=== PATIENT | male | born 1965 | race Caucasian/White ===

== ENCOUNTER 2017-01-25 13:19 | Inpatient (IN) | payer BC ==
[~2017-01-25] VITALS: Ht 172.7 cm; Wt 89.2 kg
[2017-01-25] MEDS ORDERED: SODIUM CHLORIDE 0.9% 1,000ML IVBOLUS ONE (14:00)
[2017-01-25] MEDS ORDERED: LORazepam 2 MG/ML, 1ML IVPush ONE (14:00)
[2017-01-25] MEDS ORDERED: SODIUM CHLORIDE FLUSH 10ML SYR IVF ONE (14:00)
[2017-01-25] MEDS ORDERED: MAALOX/HYOSCYAMINE/LIDOCAINE 45 ML BOTTLE PO ONE (14:00)
[2017-01-25] MEDS ORDERED: ASPIRIN 81 MG TABLET CHEW PO ONE (14:00)
[2017-01-25] MEDS ORDERED: ASPIRIN 81 MG TABLET CHEW ONE (14:31)
[2017-01-25] MEDS ORDERED: LORazepam 2 MG/ML, 1ML ONE (14:32)
[2017-01-25 14:39] LABS: ASPARTATE AMINO TRANSFERASE 30 U/L (15-37); BLOOD UREA NITROGEN 16 mg/dL (7-18)
[2017-01-25] MEDS ORDERED: RANI-276 PO (14:43)
[2017-01-25 14:47] LABS: IS PT STATUS REG ER OR PRE ER? YES
[2017-01-25] MEDS ORDERED: POTASSIUM CHLORIDE 20 MEQ PACKET PO ONE (15:00)
[2017-01-25] MEDS ORDERED: POTASSIUM CHLORIDE 20 MEQ TAB.ER.PRT PO ONE (16:30)
[2017-01-25] MEDS ORDERED: morphine SULFATE 10 MG/ML, 1ML IVPush PRN (16:30)
[2017-01-25] MEDS ORDERED: HYDROcodone/APAP 5/325 TABLET PO PRN (16:30)
[2017-01-25] MEDS ORDERED: ONDANSETRON 2MG/ML, 2ML IVPush PRN (16:30)
[2017-01-25] MEDS ORDERED: LORazepam 2 MG/ML, 1ML IVPush PRN (16:30)
[2017-01-25 16:57] LABS: IS PT STATUS REG ER OR PRE ER? YES
[2017-01-25 18:26] VITALS: BP 129/85
[2017-01-25] MEDS: SODIUM CHLORIDE 0.9% 1,000 ML IV SCH (20:38)
[2017-01-25] MEDS: FAMOTIDINE 20 MG TABLET PO SCH (20:39)
[2017-01-25] MEDS: ENOXAPARIN 40 MG/0.4 ML SQ SCH (20:39)
[2017-01-25 20:43] VITALS: BP 124/78
[2017-01-25 20:49] LABS: IS PT STATUS REG ER OR PRE ER? NO
[2017-01-26 01:32] VITALS: BP 117/69
[2017-01-26 05:47] LABS: BLOOD UREA NITROGEN 11 mg/dL (7-18)
[2017-01-26] MEDS: SODIUM CHLORIDE 0.9% 1,000 ML IV SCH (06:11)
[2017-01-26 06:32] VITALS: BP 117/71
[2017-01-26] MEDS: FAMOTIDINE 20 MG TABLET PO SCH (08:35)
[2017-01-26] MEDS ORDERED: REGADENOSON 0.4 MG/5 ML SYRINGE ONE (08:40)
[2017-01-26] MEDS ORDERED: PNEUMOCOCCAL 23 VACCINE IM-VACC ONE (13:00)
[2017-01-26] MEDS ORDERED: ALPR1TAB2 PO (14:52)
[2017-01-26] MEDS: ENOXAPARIN 40 MG/0.4 ML SQ SCH (16:55)
[2017-01-26 17:03] VITALS: BP 138/83
== END 2017-01-26 19:47 | disposition home or self-care (01) | DRG 313 ==
LOC: ED 14:52 → EDIP 16:16 → 5SO 18:20
PROVIDERS: ADMIT Internal Medicine; ATTEND Internal Medicine
DX: R07.89 Other chest pain (principal); F41.9 Anxiety disorder, unspecified; K21.9 Gastro-esophageal reflux disease without esophagitis; E87.6 Hypokalemia; Z87.891 Personal history of nicotine dependence; Z82.49 Family history of ischemic heart disease and other diseases of the circulatory system
CPT/HCPCS: 36415; 71010; 78452; 80048; 80053; 83690; 83735; 84439; 84443; 84484; 85025; 90732; 93005; 93017; 93306; 96361; 96374; J1650; J2405; J2785; A9502; C9898; J2060; J7030